=== PATIENT | male | born 1995 | race Caucasian/White ===

== ENCOUNTER 2021-09-14 11:09 | Emergency (ER) | payer OTHER, MEDICAID, SELFPAY ==
--- NOTE | ~2021-09-14 | XR_ITS ---
EXAMINATION: XR ANKLE, RIGHT CLINICAL INFORMATION: Hyperflexion of ankle. COMPARISON: None TECHNIQUE: AP, lateral, and mortise views of the right ankle. FINDINGS: The bones have normal alignment. The talar dome is well-positioned within the ankle mortise. Ankle joint space is normal. The tibiofibular syndesmotic space is normal. No ankle joint effusion. The small opacities projecting over soft tissues at the heel might be related to an overlying sock, but query if there is any superficial tissue abrasion, potential foreign bodies in this area. There is opacification from likely edema in Kager's fat pad. This is seen approximately 5 cm above the level of the Achilles tendon insertion and represents the region of the watershed zone of the Achilles tendon. XR/XR ankle RT min 3V IMPRESSION: * No fracture or malalignment at the right ankle. * There is soft tissue edema within Kager's fat pad in the region of the watershed zone of the Achilles tendon. This could be a manifestation of acute tendon tear. * The finding of small opacities overlying superficial tissues of the heel requires clinical correlation.
--- NOTE | ~2021-09-14 | US_ITS ---
EXAMINATION: RIGHT LOWER EXTREMITY ULTRASOUND CLINICAL INFORMATION: Question Achilles tendon rupture COMPARISON: None TECHNIQUE: Targeted ultrasound color Doppler FINDINGS: Cine study demonstrates this discontinuity of the Achilles tendon in its entirety near the myotendinous junction. Surrounding fluid and edema. US/US extremity nonvascular IMPRESSION: Sonographic evidence for essentially complete Achilles tendon rupture. MRI may be obtained for confirmation.
[2021-09-14 11:49] VITALS: BP 106/60; PULSE 78; RESP 18; TEMP 35.8; O2SAT 98; BMI 27.4
[2021-09-14 11:55] VITALS: BP 118/82; PULSE 90; O2SAT 98
--- NOTE | 2021-09-14 15:13 | ED_ITS ---
HPI - Extremity Injury (Lower) General Chief Complaint: Extremity Injury, Lower Stated Complaint: Ankle pain Time Seen by Provider: 09/14/21 12:04 Source: patient Mode of arrival: ambulatory Limitations: no limitations History of Present Illness HPI Narrative: 26 yo male healthy here with right calf and posterior ankle pain after an injury which occurred while working. 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 However the other part of his foot did not make contact and he hyper flex the foot. Immediately felt a tearing sensation and heard a pop. Since then unable to bear weight. No associated numbness, tingling, weakness. Related Data Previous Rx's Medication Instructions Recorded ibuprofen 800 mg tablet 800 mg PO Q8H PRN pain #30 tabs 09/14/21 oxycodone 5 mg tablet 5 mg PO Q8H PRN pain #5 tabs 09/14/21 Allergies Allergy/AdvReac Type Severity Reaction Status Date / Time No Known Allergies Allergy Verified 09/14/21 11:52 Review of Systems Review of Systems: Yes all other systems are reviewed and are negative Constitutional: Constitutional: Reports no additional constitutional complai nts, Denies body ache(s), Denies chills, Denies fever(s), Denies headache(s) and Denies weakness Eyes: Eyes: Reports no additional eye complaints and Denies change in vision ENT: Reports system reviewed and no additional complaints, except as documented, Denies dizziness, Denies headache(s), Denies nasal congestion, Denies nasal discharge and Denies neck pain Cardiovascular: Cardiovascular: Reports no additional cardiovascular complaints, Denies chest pain, Denies leg edema and Denies dyspnea Respiratory: Respiratory: Reports no additional respiratory complaints, Denies cough and Denies dyspnea Gastrointestinal: Gastrointestinal: Reports no additional gastrointestinal complaints, Denies abdominal pain, Denies diarrhea, Denies nausea and Denies vomiting Genitourinary: Genitourinary: Denies urinary incontinence Musculoskeletal: Musculoskeletal: Reports no additional musculoskeletal complaints, Denies back pain, Reports arthralgias, Reports joint swelling, Reports limited range of motion, Denies neck pain, Denies numbness, Reports ra diating pain into limb and Denies tingling Integumentary/Breasts: Skin/Breast: Reports system reviewed and no additional complaints, except as docu and Denies rash Neurologic: Reports system reviewed and no additional complaints, except as documented, Denies Abnormal speech present, Denies dizziness, Denies headach e(s), Denies numbness, Denies tingling and Denies weakness PMFSH Past Medical History Attestation statement: The following information was validated with the patient. Source: old records reviewed and nursing notes reviewed Social History Social History Advance Directives: No Advance Directives Information Provided: No Physical Exam Vital Signs: Vital Signs: Last Vital Signs Temp 96.5 F L 09/14/21 11:49 Pulse 78 09/14/21 11:49 Resp 18 09/14/21 11:49 BP 106/60 09/14/21 11:49 Pulse Ox 98 09/14/21 11:49 BMI result Body Mass Index 27.4 Const: General: cooperative, healthy appearing, comfortable and no acute distress Orientation/consciousness: patient oriented x3 Limitations: no limitations HEENT: Head: Yes normal to inspection Ears: hearing grossly normal bilaterally General nose exam: Normal external nose present Face and sinus: Yes normal facial exam Mouth: Normal oral and palatal mucosa present Throat: Yes posterior oropharynx normal Eyes: General: appearance normal, both eyes and all related structures Pupils: Equal, round and reactive pupils present Neck: Neck: Yes normal visual inspection Chest: Chest palpation & inspection: normal inspection of the chest Resp: Effort & Inspection: normal respiratory effort Auscultation: clear to auscultation bilaterally Cardio: Rate: regular rate Rhythm: regular rhythm Peripheral pulses: Peripheral pulses 2+ throughout GI: Inspection: Yes normal to inspection Palpation (GI): Soft to palpation and nontender Auscultation: normal bowel sounds Back/Spine/Pelvis: Thoracic/Lumbar Spine: thoracic and lumbar spine normal to inspection Skin: General skin exam: no rashes or lesions noted Neuro: General: patient oriented x3, no focal motor deficits and normal se nsation to monofilament Cranial nerves: Yes Equal, round and reactive pupils present Cognition (Neuro): normal cognition Speech: No Abnormal speech present Gait exam (Neuro): Normal gait present Motor exam (neuro): 5/5 motor strength present throughout Extrem: Other: Tenderness the posterior right ankle and calf. +perla sign. +swelling. Neurovascular intact distally. Limited range of motion General: Yes normal to inspection and Yes capillary refill normal Course Course Course Narrative: Ultrasound is positive for complete Achilles tendon rupture. There is no fracture seen on x-ray. I spoke to orthopedics (Kerrie) who recommended nonweightbearing with either a orthopedic boot or splint. After discussion with attending we will place patient in a posterior splint in a resting equinus position and given crutches for home. Orthopedics will follow up with the patient in the office early next week. Recommended rice. NSAIDs Nonweightbearing MDM - Extremity Injury (Lower) MDM Narrative Medical decision making narrative: 26-year-old male who is here with right posterior calf and ankle pain after hyperextension injury while working. On exam patient has tenderness posterior right ankle into the calf. He has positive perla sign. Concern for fracture, Achilles tendon rupture Will check x-rays, ultrasound Medical Records Attestation: I reviewed the patient's medical records. Lab Data Attestation: I reviewed the patient's lab results. Imaging Data ankle xray: Attestation: I personally reviewed and interpreted this imaging study as follows: Radiologist's impression: [address] [address] XRay Report Signed Patient: Bandar Mckeon MR#: [id number] : 1995 Acct:[id number] Age/Sex: 26 / M ADM Date: 09/14/21 Loc: .ED Attending Dr: Ordering Physician: Sary ED Physician Date of Service: 09/14/21 Procedure(s): XR ankle RT min 3V Accession Number(s): [id number] cc: Generic ED Physician~ EXAMINATION: XR ANKLE, RIGHT CLINICAL INFORMATION: Hyperflexion of ankle.? COMPARISON: None? TECHNIQUE: AP, lateral, and mortise views of the right ankle. FINDINGS: The bones have normal alignment. The talar dome is well-positioned within the ankle mortise. Ankle joint space is normal. The tibiofibular syndesmotic space is normal. No ankle joint effusion. The small opacities projecting over soft tissues at the heel might be related to an overlying sock, but query if there is any superficial tissue abrasion, potential foreign bodies in this area. There is opacification from likely edema in Kager's fat pad. This is seen approximately 5 cm above the level of the Achilles tendon insertion and represents the region of the watershed zone of the Achilles tendon. XR/XR ankle RT min 3V IMPRESSION: *? No fracture or malalignment at the right ankle. *? There is soft tissue edema within Kager's fat pad in the region of the watershed zone of the Achilles tendon. This could be a manifestation of acute tendon tear. *? The finding of small opacities overlying superficial tissues of the heel requires clinical correlation. extremity US: Attestation: I personally reviewed and interpreted this imaging study as follows: Radiologist's impression: [address] [address] Ultrasound Report Signed Patient: Bandar Mckeon MR#: [id number] : 1995 Acct:[id number] Age/Sex: 26 / M ADM Date: 09/14/21 Loc: .ED Attending Dr: Ordering Physician: Malissa Uriarte Date of Service: 09/14/21 Procedure(s): US extremity nonvascular Accession Number(s): [id number] cc: Malissa Uriarte~ EXAMINATION: RIGHT LOWER EXTREMITY ULTRASOUND CLINICAL INFORMATION: Question Achilles tendon rupture? COMPARISON: None? TECHNIQUE: Targeted ultrasound color Doppler? FINDINGS: Cine study demonstrates this discontinuity of the Achilles tendon in its entirety near the myotendinous junction. Surrounding fluid and edema.? US/US extremity nonvascular IMPRESSION: Sonographic evidence for essentially complete Achilles tendon rupture. MRI may be obtained for confirmation. Procedures Orthopedic Splinting/Casting Injury #1: Side: right Lower Extremity Injury Location: lower leg Lower Extremity Immobilizer: posterior splint (in resting equinus position) Other Orthopedic Equipment: crutches Discharge Plan Discharge Clinical Impression: Achilles tendon rupture Patient Disposition: Home, Self-Care Instructions: Achilles Tendon Rupture (ED), Splint Care (ED) Additional Instructions: Keep the splint on at all times. Do not get it wet. You are supposed to be strict nonweightbearing. Call Orthopedics on Thursday morning to set up an appointment. Elevate the leg Prescriptions: New ibuprofen 800 mg tablet 800 mg PO Q8H PRN (Reason: pain) Qty: 30 0RF oxycodone 5 mg tablet 5 mg PO Q8H PRN (Reason: pain) Qty: 5 0RF Rx Instructions: Partial Fill upon patient request. [place] [facility] [place] [facility] [place]Provider Group[place] - 3 days Stand Alone Forms: Work/School Release Interventions: ED Discharge Assessment Last Done: 09/14/21 15:49 Discharge Date/Time: 09/14/21 15:54
[2021-09-14] MEDS: Ketorolac Tromethamine 60 MG/2 ML VIAL IM (15:50)
== END 2021-09-14 15:54 | disposition home or self-care (01) ==
PROVIDERS: Emergency Provider Student in an Organized Health Care Education/Training Program
DX: S86.011A Strain of right Achilles tendon, initial encounter (principal); X50.1XXA Overexertion from prolonged static or awkward postures, initial encounter; Y93.89 Activity, other specified; Y92.812 Truck as the place of occurrence of the external cause; Y99.0 Civilian activity done for income or pay
CPT/HCPCS: 29515; 73610; 76882; 96372; 99283; 99284; J1885

== ENCOUNTER → 2021-09-19 11:07 | Outpatient (BNVA) | payer OTHER, MEDICAID, SELFPAY | PROVIDERS: PCP Nurse Practitioner Family; Visit Provider Physician Assistant | DX: S86.011A Strain of right Achilles tendon, initial encounter (principal) | CPT/HCPCS: 99202 ==

== ENCOUNTER 2021-09-25 10:13 | Day surgery (SDC) | payer OTHER, MEDICAID, SELFPAY ==
--- NOTE | 2021-09-24 09:58 | HO.ANESPROP2 ---
Documented by User: Sumi Barrow NP 09/24/21 09:59 HPI - Anesthesia Eval Consult details Narrative: 26yo M for Right Achilles Tendon Repair [facility], [facility] Past Medical History Medical History (Updated 09/25/21 @ 10:28 by Juli Ribeiro RN) No pertinent past medical history Social History Social History (Updated 09/19/21 @ 11:28 by BUTCH Chase) Patient Tobacco Use Status: Current everyday Tobacco user Tobacco use type: Smokeless Tobacco Current occupation: delivery, rt hand Meds Allergies Allergy/AdvReac Type Severity Reaction Status Date / Time No Known Allergies Allergy Verified 09/25/21 10:22 Exam Exam Date and Time: September 24, 2021 09 Assessment and Plan Assessment Anesthesia Assessment: Chart Reviewed Documented by User: Chan Castro MD 09/25/21 15:44 HPI - Anesthesia Eval Consult details Narrative: 26yo M for Right Achilles Tendon Repair smoker [facility], [facility] Past Medical History Medical History (Updated 09/25/21 @ 10:28 by Juli Ribeiro RN) No pertinent past medical history Family History Family history of problems with anesthesia: No Surgical History History of Problems with Anesthesia: No Social History Social History (Updated 09/19/21 @ 11:28 by BUTCH Chase) Patient Tobacco Use Status: Current everyday Tobacco user Tobacco use type: Smokeless Tobacco Current occupation: delivery, rt hand Meds Allergies Allergy/AdvReac Type Severity Reaction Status Date / Time No Known Allergies Allergy Verified 09/25/21 10:22 Exam Airway Mallampati Class: III TM Dist: >3cm Neck ROM: Full Loose/Missing/Broken Teeth: Yes (Fillings ) Heart: S1,S2 Lungs: b/l breath sounds Assessment and Plan Assessment Anesthesia Assessment: Anesthesia Plan Discussed Final Anesthetic Review Family History of Problems with Anesthesia: No History of Problems with Anesthesia: No NPO: Yes ASA Class: II Final Preanesthetic Review: Meds/Allgs Chart Reviewed, Consent Obtained/Reviewed and Anes Risks/Benef Reviewed Patient Risk: Intermediate Procedure Risk: Intermediate Anesthetic Plan Anesthetic Plan: GA Disposition: Standard PACU
[2021-09-25] VITALS (22 sets, daily range): BP systolic 123–152; BP diastolic 71–91; PULSE 60–85; RESP 12–18; TEMP 36.1–37; O2SAT 96–100; BMI 27.4
[2021-09-25] MEDS: Lactated Ringers 1,000 ML 100 ML IVCONT (10:52)
--- NOTE | 2021-09-25 12:05 | MHC.SHP ---
Pre-Procedural Eval Section A Date of Service: 09/25/21 The patient is an INPATIENT: No Changes since office visit: Yes Patient answered all questions; No Cold of Flu in the past 2 weeks, No New Medical Problems and No Changes in Medication The History & Physical has been completed within 30 days and I have reviewed it.: Yes Section B Chief Complaint: strain of Achilles tendon Allergies: Allergies Allergy/AdvReac Type Severity Reaction Status Date / Time No Known Allergies Allergy Verified 09/25/21 10:22 Plan I have reviewed the history and physical and performed a pertinent physical examination on my patient. No changes have occurred unless specified.
--- NOTE | 2021-09-25 13:32 | PM.OP ---
Brief Operative Note Date of Service: 09/25/21 Pre-op diagnosis: right achilles tendon rupture Procedure: Right achilles tendon repair Implants: [employer] colagen bioinductive graft Surgeon: Daniel Cortez MD Anesthesia: GETA and local Was an Clinical Research Director used for this Procedure?: Yes Clinical Research Director: Gardenia Jack Estimated blood loss (mL): 5 IV fluids (mL): 800 Pathology: none sent Condition: stable Disposition: PACU
--- NOTE | 2021-09-25 13:38 | W.PM.OPN ---
Operative Note Operative Note Date of Service: 09/25/21 Narrative: Date of Service: 09/25/21 Pre-op diagnosis: right achilles tendon rupture Procedure: Right achilles tendon repair Implants: [employer] Nephew colagen bioinductive graft Surgeon: Daniel Cortez MD Anesthesia: GETA and local Was an Furniture Finisher used for this Procedure?: Yes Furniture Finisher: Gardenia Jack Estimated blood loss (mL): 5 IV fluids (mL): 800 Pathology: none sent Condition: stable Disposition: PACU Procedure In detail: Patient was brought to the operating room and placed prone on the surgical table. He was prepped and draped in standard sterile fashion and a time out was called to identify proper site, proper procedure and IV antibiotics per weight were administered. I began by making a 1.5-2 cm incision over the distal Achilles tendon. Once through skin was immediately obvious that he had a full-thickness tear of his Achilles tendon. I had opened up the incision distally and additional 1 cm to fully visualize the distal tendon. There was retraction of a portion of the proximal tendon such that I released the paratenon and then with a Suzan clamp was able to retrieve the torn retracted proximal tendon. I debrided a the necrotic tissue and then using a 2. FiberWire and a Krackow stitch in both the distal and proximal fragment reapproximated to tendon fragments with the foot and hyper plantar flexion. I oversewed these this with additional locked FiberWire stitches and had an excellent repair. Because the retraction of the proximal tendon there was a slightly diminished tendon in with and therefore I elected to place a 1.5 by 2 cm collagen bio inductive graft over the repair site. This was sutured in place with a 2-0 Vicryl. I irrigated copiously once I was satisfied with the repair and the graft placement. I then closed with a vertical mattress 3-0 nylon stitch. Patient was placed in a proving vacuum assisted dressing and a well-padded posterior splint was applied with the plan plantar flexion. Local anesthetic was injected around the incision site prior to dressing placement. Patient was then extubated brought to recovery room stable condition. There were no known complications.
[2021-09-25] MEDS: Acetaminophen 325 MG TABLET 650 MG PO (14:19)
[2021-09-25] MEDS: fentaNYL citrate/PF 100 MCG/2 ML VIAL 25 MCG IVPUSH ×4 (14:20→15:16)
[2021-09-25] MEDS: oxyCODONE HCl Immed Release 5 MG TABLET PO (14:20)
[2021-09-25] MEDS: HYDROmorphone HCl 0.5 MG/0.5 ML SYRINGE 0.25 MG IVPUSH ×2 (14:45→14:53)
[2021-09-25] MEDS: Ketorolac Tromethamine 30 MG/ML VIAL IVPUSH (16:21)
[2021-09-25] MEDS: oxyCODONE HCl Immed Release 5 MG TABLET 10 MG PO (16:27)
[2021-09-25] MEDS: fentaNYL citrate/PF 100 MCG/2 ML VIAL 50 MCG IVPUSH (16:28)
== END 2021-09-25 17:20 | disposition home or self-care (01) ==
PROVIDERS: Visit Provider Orthopaedic Surgery
PROC: (CPT 27650; principal; 2021-09-25 12:20)
DX: S86.011A Strain of right Achilles tendon, initial encounter (principal); X58.XXXA Exposure to other specified factors, initial encounter; Y93.89 Activity, other specified; Y92.812 Truck as the place of occurrence of the external cause; Y99.0 Civilian activity done for income or pay; F17.210 Nicotine dependence, cigarettes, uncomplicated
CPT/HCPCS: 27652; C1781; J0690; J1100; J1170; J1885; J2250; J2405; J2795; J3010

== ENCOUNTER → 2021-09-27 15:03 | Outpatient (BNVA) | payer OTHER, MEDICAID, SELFPAY | PROVIDERS: Visit Provider Physician Assistant | DX: S86.011D Strain of right Achilles tendon, subsequent encounter (principal) | CPT/HCPCS: 29405 ==

== ENCOUNTER → 2021-10-02 14:18 | Outpatient (BNVA) | payer OTHER, MEDICAID, SELFPAY | PROVIDERS: Visit Provider Physician Assistant | DX: S86.011D Strain of right Achilles tendon, subsequent encounter (principal) | CPT/HCPCS: 29405 ==

== ENCOUNTER 2021-10-22 13:59 | Day surgery (SDC) | payer OTHER, MEDICAID, SELFPAY ==
[2021-10-22] VITALS (12 sets, daily range): BP systolic 104–134; BP diastolic 58–86; PULSE 79–94; RESP 12–16; TEMP 36.3–36.8; O2SAT 97–100; BMI 25.0
[2021-10-22] MEDS: Lactated Ringers 1,000 ML 50 ML IVCONT (14:28)
--- NOTE | 2021-10-22 16:49 | HO.ANESPROP2 ---
HPI - Anesthesia Eval Consult details Narrative: 26 M for achilles tendon I&D [facility] Past Medical History Medical History No pertinent past medical history Family History Family history of problems with anesthesia: No Surgical History Surgical History History of Achilles tendon repair History of Problems with Anesthesia: Yes (PONV) Social History Social History Patient Tobacco Use Status: Current everyday Tobacco user Tobacco use type: Cigarette Cigarettes Per Day: 1 Use of substances other than those prescribed or required for medical reasons: Yes Substance Use Frequency: Daily Are you DNR?: No Advance Directives: No Advance Directives Information Provided: Yes Current occupation: delivery, rt hand Meds Allergies Allergy/AdvReac Type Severity Reaction Status Date / Time No Known Allergies Allergy Verified 10/22/21 14:29 Active Medications: Current Medications Lactated Ringer's (Lr) 1,000 mls @ 50 mls/hr IVCONT .Q20H JOSE LUIS Last Admin: 10/22/21 14:28 Dose: 50 mls/hr Exam Exam Date and Time: October 22, 2021 1649 Height,Weight and Vital Signs: Height 5 ft 6 in Weight 155 lb Last Vital Signs Temp 97.3 F 10/22/21 14:26 Pulse 90 10/22/21 14:26 Resp 15 10/22/21 14:26 BP 116/71 10/22/21 14:26 Pulse Ox 97 10/22/21 14:26 O2 Del Method 10/22/21 14:26 Airway Mallampati Class: II TM Dist: >3cm Neck ROM: Full Loose/Missing/Broken Teeth: No Assessment and Plan Assessment Anesthesia Assessment: Anesthesia Plan Discussed and Chart Reviewed Final Anesthetic Review Family History of Problems with Anesthesia: No History of Problems with Anesthesia: Yes (PONV) NPO: Yes ASA Class: I Final Preanesthetic Review: No Changes in Pt Med Stat, Meds/Allgs Chart Reviewed, Consent Obtained/Reviewed and Anes Risks/Benef Reviewed Patient Risk: Low Procedure Risk: Low Anesthetic Plan Anesthetic Plan: GA Disposition: Standard PACU
--- NOTE | 2021-10-22 17:18 | P.BOP_ITS ---
Brief Operative Note Date of Service: 10/22/21 Pre-op diagnosis: right achilles tendon infection Post-op diagnosis: same Procedure: Debridement and irrigation right achilles Surgeon: Daniel Cortez MD Anesthesia: GETA and local Was an College Or University Registrar used for this Procedure?: Yes College Or University Registrar: Kerrie Dunbar Estimated blood loss (mL): 50 Pathology: none sent Condition: stable Disposition: PACU
[2021-10-22] MEDS: Acetaminophen 325 MG TABLET 650 MG PO (17:55)
[2021-10-22] MEDS: HYDROmorphone HCl 0.5 MG/0.5 ML SYRINGE 0.25 MG IVPUSH ×3 (17:55→18:25)
[2021-10-22] MEDS: oxyCODONE HCl Immed Release 5 MG TABLET PO (18:13)
--- NOTE | 2021-10-25 15:57 | W.PM.OPN ---
Operative Note Operative Note Date of Service: 10/22/21 Narrative: Date of Service: 10/22/21 Pre-op diagnosis: right achilles tendon infection Post-op diagnosis: same Procedure: Debridement and irrigation right achilles Surgeon: Daniel Cortez MD Anesthesia: GETA and local Was an Loss Claim Clerk used for this Procedure?: Yes Loss Claim Clerk: Kerrie Dunbar Estimated blood loss (mL): 50 Pathology: none sent Condition: stable Disposition: PACU Procedure in detail: Patient was brought to the operating room and placed in a sloppy lateral on the surgical table. He was prepped and draped in standard sterile fashion and a time out was called to identify proper site, proper procedure and IV antibiotics per weight were administered. I began by making a 1 cm incision over the previous incision. Once through skin there was purulent discharge. Once this was irrigated there were no remaining areas of obvious infection. The tendon was examined. There was a portion of the tendon that had retracted with fiberwire suture attached. I debrided all the foreign material and the necrotic tissue. I then irrigated copiously. There was a deep portion of tendon/scarring in continuity and he has an intact Lowry test, suprisingly. There was insufficient tendon to repair and this was contraindicated in the presence of infection. I therefore closed the skin with a vertical mattress 3-0 nylon stitch. Patient was placed in sterile dressing and a well-padded posterior splint was applied with the plan plantar flexion. Local anesthetic was injected around the incision site prior to dressing placement. Patient was then extubated brought to recovery room stable condition. There were no known complications.
== END 2021-10-22 19:10 | disposition home or self-care (01) ==
PROVIDERS: Visit Provider Orthopaedic Surgery
PROC: (CPT 27650; principal; 2021-10-22 16:10)
DX: T81.41XA Infection following a procedure, superficial incisional surgical site, initial encounter (principal); M76.61 Achilles tendinitis, right leg; F17.200 Nicotine dependence, unspecified, uncomplicated; L08.89 Other specified local infections of the skin and subcutaneous tissue; Y83.8 Other surgical procedures as the cause of abnormal reaction of the patient, or of later complication, without mention of misadventure at the time of the procedure; Y92.9 Unspecified place or not applicable
CPT/HCPCS: 11042; J1170; J1885; J2250; J2405; J2795; J3010

== ENCOUNTER → 2022-01-27 11:07 | Outpatient (BNVA) | payer OTHER, MEDICAID, SELFPAY | PROVIDERS: Visit Provider Physician Assistant | DX: S86.011D Strain of right Achilles tendon, subsequent encounter (principal) | CPT/HCPCS: 99212 ==

== ENCOUNTER 2022-03-13 11:00 | Outpatient (RCR) | payer OTHER, MEDICAID, SELFPAY ==
--- NOTE | 2022-01-10 16:39 | MHC.PT.EP ---
[facility] [place] Office [place] Office [place] Office [address] Fausto Alvarez [address] [phone] F: [phone] F: [phone] F: [phone] F: [phone] Physical Therapy Plan of Care Date of Evaluation: Date of Surgery: 09/25/21 ACHILLES TENDON REPAIR, I&D ON10/22/21 Diagnosis: ACHILLES TENDON RUPTURE S/P ACHILLES TENDON REPAIR Assessment: Pt IS 26 YO M REFERRED TO PT FROM ORTHO (JULISSA) S/P R ACHILLES TENDON RUPTURE 09/14, REPAIR 09/25, I&D 10/22. NWB>PWB WITH CAM BOOT AND B CRUTCHES. PRESENTS WITH LIMITED ROM AND STRENGTH R ANKLE WITH LIMITED GT. Pt HAS 1 YEAR OLD CHILD. 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 (OOW SINCE THEN). Pt SHOULD BENEFIT FROM PT TO ADDRESS THESE ISSUES Frequency and Duration: The patient will be seen 2X/WK X 8 WKS Short Term Goals: 1. I HEP WITH DC EX PLAN 2. INCREASED AWARENESS ANKLE CARE 3. I GT WITHOUT LIMP WITHOUT CRUTCHES OR BOOT Halfway Goals: 1. RTW 2. INCREASED R ANKLE ROM 5-10 DEGREES FOR PF, EVERSION, DF 3. INCREASED R ANKLE STRENGTH 1-2 MM GRADES 4. IMPROVED LEFI (30/80 SOC) Treatment Plan: Modalities to reduce pain, spasms and effusion. Manual therapy to restore motion and function. Therapeutic exercise to improve strength and flexibility. Neuromuscular re-education for posture and balance. Therapeutic activities to return to functional activities of daily living. Electronically signed by: KELBY PERDOMO PT Please sign and return to therapist. Thank you for your referral.
--- NOTE | 2022-03-14 08:32 | MHC.PT.DC ---
[facility] [place] Office [place] Office [place] Office [address] Fausto Alvarez [address] [phone] F: [phone] F: [phone] F: [phone] F: [phone] Physical Therapy Discharge Report Diagnosis: ACHILLES TENDON RUPTURE S/P ACHILLES TENDON REPAIR Date of Surgery: 09/25/21 ACHILLES TENDON REPAIR, I&D ON10/22/21 Date of Evaluation: 01/10/22 Date of Discharge: 03/13/22 Treatments to Date: 7 Cancellations to Date: 11 No Shows to Date: Discharge Status: Achieved Goals Improved Function Independent with HEP Visit Non-compliance Discharge Summary: PER LAST NOTE FROM 03/13/22 BY EDWARD MIRELES PTA 'SPADI improved from 3080 to 43/80, -Pt independent w/HEP.' WITH GOALS MET Electronically signed by: KELBY PERDOMO PT Please sign and return to therapist. Thank you for your referral.
== END 2022-03-14 08:32 | disposition home or self-care (01) ==
LOC: HO.PT 11:00
PROVIDERS: Visit Provider Physician Assistant
DX: Z98.890 Other specified postprocedural states (principal)
CPT/HCPCS: 97110; 97116; 97162; 97530; 97535

== ENCOUNTER → 2022-03-24 11:44 | Outpatient (BNVA) | payer OTHER, MEDICAID, SELFPAY | PROVIDERS: Visit Provider Physician Assistant | DX: S86.019D Strain of unspecified Achilles tendon, subsequent encounter (principal) | CPT/HCPCS: 99212 ==

== ENCOUNTER 2023-08-10 21:11 | Emergency (ER) | payer MEDICAID, SELFPAY ==
--- NOTE | ~2023-08-10 | XR_ITS ---
EXAMINATION: XR HAND, LEFT CLINICAL INFORMATION: Injury COMPARISON: None available. TECHNIQUE: Three views of the left hand. FINDINGS: The bones and soft tissues are normal. No fracture. Alignment is anatomic. Joint spaces are maintained. No erosions or soft tissue calcifications. XR/XR hand LT min 3V IMPRESSION: Normal left hand.
[2023-08-10 21:48] VITALS: BP 129/65; PULSE 92; RESP 18; TEMP 36.5; O2SAT 97; BMI 31.2
[2023-08-11] VITALS: BP 116/68; PULSE 73; RESP 16; TEMP 36.6; O2SAT 97
[2023-08-11] MEDS: Ibuprofen 400 MG TABLET PO (00:21)
[2023-08-11] MEDS: Acetaminophen 325 MG TABLET 975 MG PO (00:22)
--- NOTE | 2023-08-11 01:20 | ED.GENADULT ---
HPI - General Adult General Chief complaint: Wound/Laceration Stated complaint: left hand laceration Time Seen by Provider: 08/11/23 00:12 Source: patient Mode of arrival: ambulatory Limitations: no limitations History of Present Illness ED Provider: Kim BURKS narrative: 28-year-old male presents for evaluation of a laceration to his left hand. Patient reports that he was using his night to open a piece of plastic He reports that the knife slipped causing him to stab and cut his left hand He reports that there was a lot of blood He reports being able to move all of his fingers He does not believe his tetanus is up-to-date He reports moderate, 6/10 pain to the area No other complaints or concerns at this time Related Data Previous Rx's ?Medication ?Instructions ?Recorded ibuprofen 800 mg tablet 800 mg PO Q8H PRN pain 30 days #90 10/03/21 tabs PC ACHILLES WEDGE #1 ea 11/12/21 Knee scooter #1 ea 11/29/21 Allergies Allergy/AdvReac Type Severity Reaction Status Date / Time No Known Allergies Allergy Verified 08/10/23 21:53 Review of Systems Constitutional: Constitutional: Denies body ache(s), Denies chills and Denies fever(s) Eyes: Eyes: Denies blurry vision ENT: Denies sore throat Cardiovascular: Cardiovascular: Denies chest pain and Denies dyspnea Respiratory: Respiratory: Denies cough and Denies dyspnea Musculoskeletal: Musculoskeletal: Denies arthralgias and Denies joint swelling Integumentary/Breasts: Skin/Breast: Reports wounds PMFSH Past Medical History Medical History No pertinent past medical history Surgical History History of Achilles tendon repair Social History Social History Patient Tobacco Use Status: Current everyday Tobacco user Tobacco use type: Cigarette Cigarettes Per Day: 1 Advance Directives: No Advance Directives Information Provided: Yes Do you have a plan to hurt others: No Plan Current occupation: delivery, rt hand Physical Exam ED Vital Signs: Vital Signs - 24 hr 08/10/23 21:48 08/11/23 00:00 Temperature 97.7 F 97.8 F Pulse Rate 92 73 Respiratory Rate 18 16 Blood Pressure 129/65 116/68 Pulse Oximetry 97 97 Oxygen Delivery Method Room Air Room Air BMI result Body Mass Index 31.2 Skin Other: 4 cm linear, full-thickness laceration in the web spacing between the 1st and 2nd finger. There is subcutaneous fatty tissue exposed. Minimal active bleeding. No visible bone, tendon or vasculature Extrem Other: Patient has full range of motion with flexion-extension of all fingers including the 1st, 2nd, 3rd MCP joints, interphalangeal joint. Medications Administered Discontinued Medications Generic Name Dose Route Start Last Admin Trade Name Hannah PRN Reason Stop Dose Admin Acetaminophen 975 mg 08/11/23 00:06 08/11/23 00:22 Acetaminophen 325 Mg Tablet PO 08/11/23 00:07 975 mg ONCE ONE Administration Ibuprofen 400 mg 08/11/23 00:06 08/11/23 00:21 Ibuprofen 400 Mg Tablet PO 08/11/23 00:07 400 mg ONCE ONE Administration Procedures Laceration Laceration 1: Site: hand Side (If applicable): left Size (cm): 3 Description: linear Depth: simple, single layer Local Anesthetic: lidocaine 1% Amount of anesthesia used (mL): 6 Pre-repair: wound explored, irrigated extensively and deep structures intact Skin layer closed with: nylon Size (cm): 4-0 Number of sutures: 6 Technique: simple, interrupted Medical Decision Making Medical Decision Making MDM Narrative: 28-year-old male presents for evaluation of laceration to his left hand, no evidence of complicated laceration such as tendon injury or vasculature injury. See procedure note for wound repair. Laceration repair was performed by PA student, Malissa Gonzalez under my direct supervision Differential Diagnosis Differential Diagnoses: The differential diagnosis associated with the presentation includes Laceration Skin tear Puncture wound Tetanus exposure Independent Interpretation I performed an independent interpretation of an: Plain X-Ray Interpretation: No obvious osseous deformity of the right hand Radiology Impression Discussion of test interpretation with radiology: I have reviewed the radiologist's reading. Radiologist Impression: XR/XR hand LT min 3V IMPRESSION: Normal left hand. Discharge Plan Discharge Clinical Impression: Laceration Patient Disposition: Home, Self-Care Instructions: Laceration (ED) Additional Instructions: You had 6 sutures placed today. Keep the area clean and dry. Your tetanus was updated today. The sutures can be removed in 10-14 days Follow-up with your primary doctor Return for new or worsening symptoms, especially develop fever, oozing from the wound Prescriptions: No Action (DME) PC ACHILLES WEDGE See Rx Instructions .ROUTE .MEDSUPPLY Qty: 1 0RF Rx Instructions: As directed s/p achilles tendon repair (DME) Knee scooter See Rx Instructions .ROUTE .MEDSUPPLY Qty: 1 0RF Rx Instructions: As directed ibuprofen 800 mg tablet 800 mg PO Q8H PRN (Reason: pain) 30 Days Qty: 90 3RF Print Language: [place]
[2023-08-11] MEDS: Diphth,Pertus(ACell),Tet Adult 0.5 ML SYRINGE IM (02:12)
[2023-08-11 02:13] VITALS: BP 119/76; PULSE 70; RESP 18; TEMP 36.6; O2SAT 97
== END 2023-08-11 02:14 | disposition home or self-care (01) ==
PROVIDERS: Emergency Provider Student in an Organized Health Care Education/Training Program
DX: S61.412A Laceration without foreign body of left hand, initial encounter (principal); W26.0XXA Contact with knife, initial encounter; F17.210 Nicotine dependence, cigarettes, uncomplicated; Y93.89 Activity, other specified; Y92.9 Unspecified place or not applicable; Y99.9 Unspecified external cause status; Z23 Encounter for immunization
CPT/HCPCS: 12002; 73130; 90471; 90715; 99283; 99284